=== PATIENT | female | born 1940 | race Caucasian/White ===

== ENCOUNTER → 2016-12-10 | Day surgery (SDC) | payer MEDICARE ==
[~2016-12-10] MED LIST: ATROPINE SULFATE 1% OPHT SOLN 2 ML BTL ONE; DEXAMETHASONE SOD PHOS 4 MG/ML VIAL ONE; EPINEPHrine HCL (1:1000) 1 MG/ML VIAL ONE; FLURBIPROFEN 0.03% OPHT SOLN 2.5 ML BTL ONE; HYALURONIDASE/LIDOCAINE/BUPIVACAINE 11 ML SYR TL ONE; LACTATED RINGER'S 1000 ML INJ 1,000 ML ONE; NEOMYCIN/POLYMYXIN/DEXAMETHASONE OPTH OINT 3.5 GM TUBE ONE; PHENYLEPHRINE HCL 2.5 % OPTH SOLN 15 ML BTL ONE; PROPOFOL 100 MG/10 ML INJ IV ONE; SODIUM CHLORIDE 0.9% INJ 10 ML ONE; TETRACAINE 0.5% OPTH SOLN 15 ML BTL ONE; TRIAMCINOLONE ACETONIDE 40 MG/ML VIAL ONE; TROPICAMIDE 1% OPHT SOLN 15 ML BTL ONE; ceFAZolin INJ 1,000 MG VIAL ONE
--- NOTE | 2016-12-14 08:06 | TN ---
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 PROCEDURE Pars plana vitrectomy, membrane peeling, endolaser gas-fluid exchange, left eye. ANESTHESIA MAC. SURGEON Adrian COMPLICATIONS None. DETAILS OF PROCEDURE After the patient gave informed consent, she was given retrobulbar anesthesia. She was then brought to the operating room, prepared and draped in the usual sterile fashion. A wire lid speculum was placed in the patient's left eye.23-gauge vitrectomy cannulas were then placed in the lower temporal, superotemporal and superonasal quadrants, 3 mm posterior to the cornea scleral limbus. An infusion cannula was placed lower temporally. A core vitrectomy was then performed. She had had a previous panretinal photocoagulation for proliferative diabetic retinopathy and there was traction in the temporal mid periphery where a small retinal break had opened causing the rhegmatogenous retinal detachment. The membranes were carefully peeled off this area and a vitrectomy was carried out as far as possible to the vitreous base. A complete air-fluid exchange was performed through this site and the retina flattened nicely. The endolaser was used to treat this site and some additional panretinal photocoagulation was placed. The air was then exchanged for 16% C3F8. The three vitrectomy cannulas were then removed. Subconjunctival injections of dexamethasone and Ancef were placed. An Atropine drop, Maxitrol ointment and a patch and shield were then applied. The patient tolerated the procedure well. There were no complications. [facility]. Giovanni Davison MD TAB/BT /10:00 AM /7:47 AM
== END | disposition home or self-care (01) ==
LOC: ESDC 06:19
PROVIDERS: ATTEND Ophthalmology Retina Specialist
DX: E11.319 Type 2 diabetes mellitus with unspecified diabetic retinopathy without macular edema (principal); H33.42 Traction detachment of retina, left eye; H43.12 Vitreous hemorrhage, left eye
CPT/HCPCS: 00145; 67113; J0171; J0690; J1100; J7120; J3301

== ENCOUNTER → 2017-07-27 | Day surgery (SDC) | payer MEDICARE ==
[~2017-07-27] MED LIST changes: -ATROPINE SULFATE 1% OPHT SOLN 2 ML BTL ONE; +ATROPINE SULFATE 1% OPHT SOLN 5 ML BTL ONE; -HYALURONIDASE/LIDOCAINE/BUPIVACAINE 11 ML SYR TL ONE; +HYALURONIDASE/LIDOCAINE/BUPIVACAINE 5 ML SYR ONE; +HYDROCORTISONE SOD SUCCINATE 100 MG VIAL ONE; -LACTATED RINGER'S 1000 ML INJ 1,000 ML ONE; +LIDOCAINE HCL 4% PF 5 ML AMP ONE; +MIDAZOLAM HCL 2 MG/2 ML VIAL ONE; -PROPOFOL 100 MG/10 ML INJ IV ONE; +PROPOFOL 200 MG/20 ML AMP IV ONE; -TETRACAINE 0.5% OPTH SOLN 15 ML BTL ONE; +TETRACAINE 0.5% OPTH SOLN 4 ML BTL ONE
--- NOTE | 2017-08-08 12:14 | TN ---
cc: GIOVANNI DAVISON MD DATE OF SURGERY: 07/27/2017 DATE OF : [birth year] PREOPERATIVE DIAGNOSIS Previous retinal detachment left eye. POSTOPERATIVE DIAGNOSIS Previous retinal detachment left eye. PROCEDURE Pars plana vitrectomy, silicone oil removal left eye. ANESTHESIA MAC. SURGEON Giovanni Davison MD COMPLICATIONS None. PROCEDURE IN DETAIL After informed consent was obtained, the patient brought to the operating room, placed, under brief anesthesia of propofol, prepped and draped in the usual sterile fashion. A wire eyelid speculum was placed in the patient's left eye. 23 gauge vitrectomy cannulas were then placed, one lower temporal, supratemporal and supranasal quadrants 3 mm posterior to the corneal scleral limbus. Infusion cannula was placed lower temporally. The patient had a previous vitrectomy with some of the residual vitreous, at the vitreous space was excised using the vitreous cutter. Posteriorly either the internal limiting membrane or an epiretinal membrane was stained with ICG dye over the surface of the macula. This was then carefully peeled from around the macula hole. Careful indirect ophthalmoscopy with scleral depression was then performed. No peripheral breaks were noted. A complete air-fluid was then performed. The silicone oil gas then used to fill the vitreous cavity. The three vitrectomy cannulas were then removed. Each site was closed with interrupted 7-0 Vicryl suture. Subconjunctival injections of Dexamethasone and Ancef were placed. Atropine drops. Maxitrol ointment and patch and shield were then applied. The patient tolerated the procedure well. There were no complications. She will followup tomorrow in our [place] office. Giovanni Davison MD TAB/AWILDA /10:38 AM /11:54 AM
== END | disposition home or self-care (01) ==
LOC: ESDC 11:27
PROVIDERS: ATTEND Ophthalmology Retina Specialist
DX: H33.8 Other retinal detachments (principal); T85.398A Other mechanical complication of other ocular prosthetic devices, implants and grafts, initial encounter
CPT/HCPCS: 00145; 67036; J0171; J0690; J1100; J1720; J2250; J3301

== ENCOUNTER → 2017-08-17 | Day surgery (SDC) | payer MEDICARE ==
[~2017-08-17] MED LIST changes: -HYDROCORTISONE SOD SUCCINATE 100 MG VIAL ONE; +LACTATED RINGER'S 1000 ML INJ 1,000 ML ONE; -MIDAZOLAM HCL 2 MG/2 ML VIAL ONE; +PROPOFOL 100 MG/10 ML INJ IV ONE; -PROPOFOL 200 MG/20 ML AMP IV ONE; +TETRACAINE 0.5% OPTH SOLN 15 ML BTL ONE; -TETRACAINE 0.5% OPTH SOLN 4 ML BTL ONE
--- NOTE | 2017-08-21 15:57 | MP ---
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 OPERATION: Pars plana vitrectomy, membrane peeling, endolaser, silicone oil placement, left eye. SURGEON: Giovanni Davison MD ANESTHESIA: MAC. COMPLICATIONS: None. DESCRIPTION OF THE PROCEDURE IN DETAIL: After informed consent was obtained, the patient was given retrobulbar anesthesia in the preoperative area. She was then brought to the operating room, prepared and draped in the usual sterile fashion. A wire lid speculum was placed in the patient' left eye. A 270 degree conjunctival peritomy was then performed using 0.12 forceps and Jenna scissors. Excellent hemostasis was obtained with bipolar cautery. Scleral pope were then made 3 mm posterior to the corneoscleral limbus in the lower temporal, supratemporal and superonasal quadrants. A 6-0 Vicryl mattress suture was placed in the right lower temporal sarkis. 23-gauge vitrectomy cannulas were then placed through these sites and an infusion cannula was placed lower temporally. There had been a previous vitrectomy performed. There was a near total retinal detachment with extensive peripheral vitreoretinopathy present on the surface of the retina. A pick and intraocular forceps were used to peel these membranes. A complete air-fluid exchange was performed and eventual endolaser was placed inferiorly. Silicone oil was then used to fill the vitreous cavity. The two superior vitrectomy cannulas were removed and each site was closed with an interrupted 6-0 Vicryl suture. The infusion cannula was then removed and the mattress suture was tied up permanently. The conjunctiva were repaired using two interrupted 7-0 Vicryl sutures. Subconjunctival injections of dexamethasone and Ancef were placed. Atropine drops, Maxitrol and a patch and shield were then applied. The patient tolerated the procedure well. There were no complications. [facility]. Giovanni Davison MD TAB/JCC /3:18 PM /3:37 PM
== END | disposition home or self-care (01) ==
LOC: ESDC 12:04
PROVIDERS: ATTEND Ophthalmology Retina Specialist
DX: H33.42 Traction detachment of retina, left eye (principal)
CPT/HCPCS: 00145; 67108; C1814; J0171; J0690; J1100; J7120; J3301